=== PATIENT | female | born 1970 ===

== ENCOUNTER → 2022-04-24 08:12 | Outpatient (CLI) | payer OTHER | END | disposition home or self-care (01) | LOC: LAB 08:12 | PROVIDERS: ATTEND General Practice | DX: R73.09 Other abnormal glucose (principal); M06.9 Rheumatoid arthritis, unspecified; N39.0 Urinary tract infection, site not specified; E55.9 Vitamin D deficiency, unspecified; D51.3 Other dietary vitamin B12 deficiency anemia; E03.8 Other specified hypothyroidism; R50.9 Fever, unspecified; E78.2 Mixed hyperlipidemia; E11.9 Type 2 diabetes mellitus without complications; Z12.11 Encounter for screening for malignant neoplasm of colon ==

== ENCOUNTER 2022-10-01 09:31 | Outpatient (CLI) | payer OTHER | END 2022-10-01 09:35 | disposition home or self-care (01) | LOC: MAMO-SONO 09:31 | PROVIDERS: ATTEND Obstetrics & Gynecology | DX: Z12.31 Encounter for screening mammogram for malignant neoplasm of breast (principal); N60.11 Diffuse cystic mastopathy of right breast; N60.12 Diffuse cystic mastopathy of left breast; N64.4 Mastodynia ==

== ENCOUNTER → 2023-11-20 06:57 | Outpatient (CLI) | payer OTHER | END | disposition home or self-care (01) | LOC: LAB 06:57 | PROVIDERS: ATTEND General Practice | DX: E55.9 Vitamin D deficiency, unspecified (principal); E87.6 Hypokalemia ==

== ENCOUNTER 2023-11-27 13:39 | Outpatient (CLI) | payer OTHER | END 2023-11-27 15:30 | disposition home or self-care (01) | LOC: LAB 13:39 | DX: E55.9 Vitamin D deficiency, unspecified (principal) ==

== ENCOUNTER → 2024-08-09 06:33 | Outpatient (CLI) | payer OTHER ==
[2024-08-09 07:14] LABS: EOS # 0.23 (0.04-0.54); HEMATOCRIT 36.9 % (34.1-44.9); HEMOGLOBIN 12.1 g/dL (11.2-15.7); LYMPH # 2.01 (1.18-3.74); LYMPH % 26.1 % (19.3-53.1); MEAN CORPUSCULAR HEMOGLOBIN 30.6 pg (25.6-32.2); MONO # 0.53 (0.24-0.82); MONO % 6.9 % (4.7-12.5); NEUT # 4.83 (1.56-6.13); NEUT % 62.7 % (34.0-71.1); PLATELET COUNT 350 K/uL (163-369); RED BLOOD COUNT 3.95 M/uL (3.93-5.22)
[2024-08-09 07:24] LABS: PH,URINE 5.5 (5.0-8.0); URINE APPEARANCE Clear; URINE BILIRRUBIN Negative (NEGATIVE); URINE BLOOD Small; URINE COLOR Yellow; URINE GLUCOSE Negative (NEGATIVE); URINE KETONE Negative (NEGATIVE); URINE LEUKOCYTE Negative; URINE NITRATE Negative; URINE PROTEIN Negative (NEGATIVE); URINE UROBILINOGEN 0.2 E.U./dl
[2024-08-09 07:25] LABS: URINE EPITHELIAL CELLS 12.8 uL (0.0-38.8); URINE WBC 4.7 uL (0.0-23.2)
[2024-08-09 08:29] LABS: ALBUMIN 3.3 gm/dL (3.4-5.0); BILIRUBIN TOTAL 0.59 mg/dL (0.3-1.2); CALCIUM 8.5 mg/dL (8.5-10.1); CHOL HDL RATIO 2.2 (0-5.0); CREATININE SERUM 0.68 mg/dL (0.55-1.02); FREE TRIODOTIRONINE 2.56 pg/ml (2.18-3.98); GFR 91.22; GLOBULINA 3.2 G/DL (2.4-3.5); POTASSIUM 4.23 mEq/L (3.5-5.1); T4 FREE 0.98 NG/ML (0.76-1.46); TOTAL PROTEIN 6.5 gm/dL (6.4-8.2); TSH 0.794 uIU/mL (0.358-3.74)
[2024-08-10 07:11] LABS: FOLLICLE STIMULATING HORMONE 10.6 mIU/mL (.); hav igm Negative (Negative); hcv Non Reactive (Non Reactive); hep b c Negative (Negative); hep b s ag Negative (Negative)
== END | disposition home or self-care (01) ==
LOC: LAB 06:33
PROVIDERS: ATTEND Obstetrics & Gynecology
DX: Z13.1 Encounter for screening for diabetes mellitus (principal); D64.9 Anemia, unspecified; E11.9 Type 2 diabetes mellitus without complications; E87.8 Other disorders of electrolyte and fluid balance, not elsewhere classified; N39.0 Urinary tract infection, site not specified; E03.9 Hypothyroidism, unspecified; Z13.220 Encounter for screening for lipoid disorders; E55.9 Vitamin D deficiency, unspecified; Z79.890 Hormone replacement therapy; N95.1 Menopausal and female climacteric states; E28.2 Polycystic ovarian syndrome; E22.1 Hyperprolactinemia; B17.9 Acute viral hepatitis, unspecified; Z11.3 Encounter for screening for infections with a predominantly sexual mode of transmission; Z13.818 Encounter for screening for other digestive system disorders; Z20.5 Contact with and (suspected) exposure to viral hepatitis

== ENCOUNTER 2024-08-09 07:32 | Outpatient (CLI) | payer OTHER | END 2024-08-09 07:39 | disposition home or self-care (01) | LOC: MAMO-SONO 07:32 | PROVIDERS: ATTEND Obstetrics & Gynecology | DX: N60.11 Diffuse cystic mastopathy of right breast (principal); N60.12 Diffuse cystic mastopathy of left breast; Z12.39 Encounter for other screening for malignant neoplasm of breast; Z12.31 Encounter for screening mammogram for malignant neoplasm of breast; R10.2 Pelvic and perineal pain ==

== ENCOUNTER 2024-10-26 07:25 | Outpatient (CLI) | payer OTHER | END 2024-10-26 07:28 | disposition home or self-care (01) | LOC: RAD 07:25 | DX: M25.551 Pain in right hip (principal); M54.12 Radiculopathy, cervical region; M54.50 Low back pain, unspecified ==

== ENCOUNTER → 2024-11-09 06:31 | Outpatient (CLI) | payer OTHER ==
[2024-11-09 07:13] LABS: URINE APPEARANCE Clear; URINE BILIRRUBIN Negative (NEGATIVE); URINE BLOOD Trace; URINE COLOR Yellow; URINE GLUCOSE Negative (NEGATIVE); URINE KETONE Negative (NEGATIVE); URINE LEUKOCYTE Negative; URINE NITRATE Negative; URINE PROTEIN Negative (NEGATIVE); URINE UROBILINOGEN 0.2 E.U./dl
[2024-11-09 07:14] LABS: URINE EPITHELIAL CELLS 1.9 uL (0.0-38.8); URINE RBC 5.5 uL (0.0-20.8)
[2024-11-09 07:21] LABS: URINE BACTERIA 3.5 uL (0.0-1933); URINE CAST 0.00 uL (0.0-1.40); URINE WBC 0.4 uL (0.0-23.2)
== END | disposition home or self-care (01) ==
LOC: LAB 06:31
DX: N39.0 Urinary tract infection, site not specified (principal)